=== PATIENT | female | born 1960 | race Caucasian/White ===

== ENCOUNTER 2016-08-19 11:09 | Inpatient (IN) | payer BC ==
[2016-08-17 14:35] VITALS: BP 107/75
[~2016-08-19] VITALS: Ht 167.6 cm; Wt 76.2 kg
[~2016-08-19 11:09] MED LIST: MAGN100T PO; THYR90TA PO; [UNRECOGNIZED DRUG - OTHER] PO
[2016-08-19] MEDS ORDERED: LACTATED RINGERS 1,000 ML IV SCH (13:48)
[2016-08-19] MEDS ORDERED: CHOL5000 PO (13:52)
[2016-08-19] MEDS ORDERED: TRAM50TA2 PO (13:52)
[2016-08-19] MEDS ORDERED: MIDAZOLAM 1 MG/ML, 2ML ONE (14:21)
[2016-08-19] MEDS ORDERED: FENTANYL PF 100 MCG/2ML ONE (14:21)
[2016-08-19] MEDS ORDERED: hydrALAzine 20 MG/ML, 1ML IV PRN (14:30)
[2016-08-19] MEDS ORDERED: MEPERIDINE/PF 25MG/0.5ML IVPush PRN (14:30)
[2016-08-19] MEDS ORDERED: HYDROmorphone 1 MG/ML, 1ML IV PRN ×2 (14:30→18:00)
[2016-08-19] MEDS ORDERED: OXYcodone 5 MG/5 ML ORAL.SOL UDC PO PRN (14:30)
[2016-08-19] MEDS ORDERED: PROMETHAZINE 25 MG/ML, 1ML IV PRN (14:30)
[2016-08-19] MEDS ORDERED: ACETAMINOPHEN 325 MG TABLET PO PRN (14:30)
[2016-08-19] MEDS ORDERED: LABETALOL 5MG/ML, 20ML IV PRN (14:30)
[2016-08-19] MEDS ORDERED: FENTANYL PF 100 MCG/2ML IV PRN (14:30)
[2016-08-19] MEDS ORDERED: ONDANSETRON 2MG/ML, 2ML IVPush PRN (14:30)
[2016-08-19 14:35] LABS: HCG UR OBC PASS
[2016-08-19] MEDS ORDERED: KETOROLAC 60 MG/2 ML ONE (15:10)
[2016-08-19] MEDS ORDERED: EPINEPHRINE 1 MG/ML, 1ML ONE (15:10)
[2016-08-19] MEDS ORDERED: ROPIvacaine/PF 0.2%, 20 ML ONE (15:10)
[2016-08-19] MEDS ORDERED: TRANEXAMIC ACID 100 MG/ML, 10ML ONE (15:10)
[2016-08-19] MEDS ORDERED: VANCOMYCIN 1,000 MG ONE (15:10)
[2016-08-19] MEDS ORDERED: BUPIVACAINE/PF-EPI 0.25% 1:200K ONE (15:11)
[2016-08-19] MEDS ORDERED: DIPHENHYDRAMINE 50 MG/ML, 1ML ONE (15:21)
[2016-08-19] MEDS ORDERED: PROPOFOL 10 MG/ML, 20ML ONE (15:21)
[2016-08-19] MEDS ORDERED: ONDANSETRON 2MG/ML, 2ML ONE (15:21)
[2016-08-19] MEDS ORDERED: CEFAZOLIN 1,000 MG ONE (15:21)
[2016-08-19] MEDS ORDERED: PHENYLEPHRINE 10 MG/ML ONE (15:21)
[2016-08-19] MEDS ORDERED: DIPHENHYDRAMINE 50 MG/ML, 1ML IVPush PRN (15:30)
[2016-08-19] MEDS ORDERED: VANCOMYCIN PER PHARMACY MC PRN (15:30)
[2016-08-19] MEDS ORDERED: VANCOMYCIN 1,600 MG in SODIUM CHLORIDE 0.9% 250 ML IV ONE (15:30)
[2016-08-19] MEDS ORDERED: PHARMACOKINETIC CONSULTATION MC ONE (15:30)
[2016-08-19] MEDS: D5%-0.45% NACL 1,000 ML IV SCH (17:39)
[2016-08-19] MEDS ORDERED: ACETAMINOPHEN 650 MG/20.3 ML UDC ONE (17:52)
[2016-08-19] MEDS ORDERED: OXYcodone 5 MG/5 ML ORAL.SOL UDC ONE (17:52)
[2016-08-19] MEDS ORDERED: TRANEXAMIC ACID 1,000 MG in SODIUM CHLORIDE 0.9% 100 ML IVPB ONE (18:00)
[2016-08-19] MEDS ORDERED: ZOLPIDEM 5MG TABLET PO PRN (18:00)
[2016-08-19] MEDS ORDERED: PROMETHAZINE 12.5 MG SUPP PR PRN (18:00)
[2016-08-19] MEDS ORDERED: ALUMINUM/MAG/SIMETHICONE 30 ML UDC PO PRN (18:00)
[2016-08-19] MEDS ORDERED: BISACODYL 10 MG SUPP PR PRN (18:00)
[2016-08-19] MEDS ORDERED: ONDANSETRON 2MG/ML, 2ML IV PRN (18:00)
[2016-08-19] MEDS ORDERED: DIPHENHYDRAMINE 25 MG CAPSULE PO PRN (18:00)
[2016-08-19] MEDS ORDERED: PROMETHAZINE 25 MG/ML, 1ML IM PRN (18:00)
[2016-08-19] MEDS ORDERED: SENNA/DOCUSATE TABLET PO PRN (18:00)
[2016-08-19] MEDS ORDERED: SCOPOLAMINE PATCH, 1.5MG PATCH.TD72 TD SCH (18:00)
[2016-08-19] MEDS ORDERED: ONDANSETRON 4 MG TABLET PO PRN (18:00)
[2016-08-19 20:21] VITALS: BP 93/62
[2016-08-19] MEDS: DOCUSATE 100 MG CAPSULE PO SCH (21:12)
[2016-08-19] MEDS: OXYcodone IR 5MG TABLET PO PRN ×2 (21:15→22:10)
[2016-08-19] MEDS: ACETAMINOPHEN 650 MG/20.3 ML UDC PO SCH (21:16)
[2016-08-19 23:57] VITALS: BP 116/70
[2016-08-20] MEDS: CEFAZOLIN PMX 1GM/50ML 50 ML IVPB SCH ×2 (00:12→08:27)
[2016-08-20] MEDS: D5%-0.45% NACL 1,000 ML IV SCH ×4 (01:39→23:59)
[2016-08-20] MEDS: OXYcodone IR 5MG TABLET PO PRN ×5 (02:53→22:01)
[2016-08-20] MEDS: ACETAMINOPHEN 650 MG/20.3 ML UDC PO SCH ×4 (02:54→22:01)
[2016-08-20 04:26] VITALS: BP 98/62
[2016-08-20] MEDS ORDERED: DEXAMETHASONE 4 MG/ML, 1ML IVPush SCH (06:00)
[2016-08-20] MEDS: ASPIRIN 81 MG TABLET EC PO SCH ×2 (06:07→18:06)
[2016-08-20 07:59] VITALS: BP 90/55
[2016-08-20] MEDS: THYROID 90 MG HOMEMEDPO SCH (08:27)
[2016-08-20] MEDS: DOCUSATE 100 MG CAPSULE PO SCH ×2 (08:38→22:01)
[2016-08-20] MEDS: MULTIVITAMINS/MINERALS TABLET PO SCH (08:38)
[2016-08-20] MEDS: TAMSULOSIN 0.4 MG CAP.ER.24H PO SCH (08:39)
[2016-08-20] MEDS ORDERED: [UNRECOGNIZED DRUG - OTHER] MC SCH (09:00)
[2016-08-20 13:20] VITALS: BP 114/63
[2016-08-20] MEDS ORDERED: GABAPENTIN 300 MG CAPSULE PO PRN (15:30)
[2016-08-20] MEDS: MAGNESIUM HYDROXIDE 8%, 30ML UDC PO PRN (15:58)
[2016-08-20] MEDS: KETOROLAC 30 MG/1 ML IV SCH (18:05)
[2016-08-20 20:04] VITALS: BP 94/52
[2016-08-21] MEDS: OXYcodone IR 5MG TABLET PO PRN ×3 (01:53→10:06)
[2016-08-21] MEDS: KETOROLAC 30 MG/1 ML IV SCH ×2 (01:53→10:05)
[2016-08-21 02:52] VITALS: BP 90/57
[2016-08-21] MEDS: ASPIRIN 81 MG TABLET EC PO SCH (04:55)
[2016-08-21] MEDS: ACETAMINOPHEN 650 MG/20.3 ML UDC PO SCH ×2 (04:55→10:06)
[2016-08-21 07:41] VITALS: BP 85/53
[2016-08-21] MEDS: MAGNESIUM HYDROXIDE 8%, 30ML UDC PO PRN (08:33)
[2016-08-21] MEDS: THYROID 90 MG HOMEMEDPO SCH (08:34)
[2016-08-21] MEDS: DOCUSATE 100 MG CAPSULE PO SCH (08:34)
[2016-08-21] MEDS: MULTIVITAMINS/MINERALS TABLET PO SCH (08:34)
[2016-08-21] MEDS: TAMSULOSIN 0.4 MG CAP.ER.24H PO SCH (08:35)
[2016-08-21] MEDS ORDERED: OXYC10TA6 PO (09:22)
[2016-08-21] MEDS: D5%-0.45% NACL 1,000 ML IV SCH (09:39)
== END 2016-08-21 10:35 | disposition home or self-care (01) | DRG 465 ==
LOC: ORIP 13:09 → 4NOR 18:39
PROVIDERS: ADMIT Orthopaedic Surgery; ATTEND Orthopaedic Surgery
PROC: 0SUC09C Supplement Right Knee Joint with Liner, Patellar Surface, Open Approach (ICD-10-PCS; 2016-08-19)
PROC: 0SPC09Z Removal of Liner from Right Knee Joint, Open Approach (ICD-10-PCS; 2016-08-19)
PROC: 0SUV09Z Supplement Right Knee Joint, Tibial Surface with Liner, Open Approach (ICD-10-PCS; 2016-08-19)
PROC: 0SPC0JC Removal of Synthetic Substitute from Right Knee Joint, Patellar Surface, Open Approach (ICD-10-PCS; principal; 2016-08-19 16:00)
DX: T84.84XA Pain due to internal orthopedic prosthetic devices, implants and grafts, initial encounter (principal); M25.561 Pain in right knee; Z88.1 Allergy status to other antibiotic agents; Z91.030 Bee allergy status; Z79.899 Other long term (current) drug therapy
CPT/HCPCS: 36415; 81025; 85014; 85018; 87081; C1713; J0171; J0690; J1100; J1885; J2250; J2405; J2704; J2795; J3010; J3370; Q0162; C1776; J1200; J2370; J7120